=== PATIENT | male | born 1990 | race Caucasian/White ===

== ENCOUNTER 2017-08-12 16:11 | Inpatient (IN) ==
--- NOTE | 2017-08-12 18:57 | Emergency Department Note ---
Disposition Clinical Impression: Abscess of skin or subcutaneous tissue Qualifiers: Site of cutaneous abscess: extremity Site of cutaneous abscess of extremity: upper extremity Laterality: right Qualified Code(s): L02.413 - Cutaneous abscess of right upper limb Cellulitis Qualifiers: Site of cellulitis: extremity Site of cellulitis of extremity: upper extremity Disposition: Admitted As Inpatient Condition: Fair Forms: ED Satisfaction Letter Time of Disposition: 21:42 Skin/Abscess/FB HPI Chief complaint: ED Skin/Abscess/Foreign Body Stated complaint: abcess on right arm Time Seen by Provider: 08/12/17 18:46 Source: patient Limitations: no limitations Nursing Notes Reviewed: Yes Vital Signs Reviewed: Yes HPI Narrative: 27-year-old who comes in complaining of an abscess to his right arm. Patient saw his family doctor today and was referred for surgical intervention. Patient has been on clindamycin for the last several days and symptoms got worse. Pt Subjective Complaint: abscess/boil Onset (ago): day(s) Location: RUE Severity: moderate Quality: burning, aching Consistency: constant Improves with: none Worsens with: palpation Context: recent antibiotic Treatments prior to arrival: none Allergies Allergy/AdvReac Type Severity Reaction Status Date / Time No Known Allergies Allergy Verified 07/12/17 10:25 All systems ED: reviewed and negative except as stated. Constitutional: Denies: fever, chills, weakness, weight change Eyes: Denies: eye pain, eye discharge, vision change ENT ED: Denies: ear pain, throat pain, dental pain, hearing loss, epistaxis, congestion, dysphagia Cardiovascular: Denies: chest pain, palpitations, dyspnea on exertion, edema, syncope Respiratory: Denies: cough, dyspnea, wheezes, hemoptysis, stridor Gastrointestinal: Denies: abdominal pain, nausea, vomiting, diarrhea, constipation, hematemesis, melena, hematochezia Genitourinary: Denies: urgency, dysuria, frequency, hematuria Musculoskeletal: Denies: back pain, neck pain, arthralgia, myalgia Integumentary: Reports: other (Abscess right forearm). Denies: rash, abrasion, lesions Neurological: Denies: headache, weakness, numbness, paresthesias, confusion, abnormal gait, vertigo Psychiatric: Denies: anxiety, depression, suicidal thoughts, homicidal thoughts , auditory hallucinations, visual hallucinations Endocrine: Denies: fatigue Hematological/Lymphatic: Denies: easy bleeding, easy bruising Allergic/Immunologic: Denies: facial swelling, urticaria Past Medical History - Past Medical History Medical history: Reports: other Surgical history: Reports: non-contributory Psychiatric history: Reports: no psych history - Social History Smoking Status: Current every day smoker Smokeless Tobacco Status: No Alcohol use: Reports: none Drug use: Reports: IV Drug Use Physical Exam - General Limitations: no limitations General appearance: alert, in no apparent distress - Head Head exam: atraumatic, normocephalic, normal inspection - Eye Eye exam: Present: normal appearance, PERRL, EOMI - ENT ENT exam: normal exam, normal oropharynx, mucous membranes moist - Neck Neck exam: Present: normal inspection, full ROM, trachea midline - Chest Chest inspection: Present: normal inspection, symmetric chest wall rise - Respiratory Respiratory exam: Present: normal lung sounds bilaterally - Cardiovascular Cardiovascular exam: Present: regular rate, normal rhythm, normal heart sounds - Abdominal Exam Abdominal exam: Present: soft, Non-Tender. Absent: tenderness, distention, guarding, rebound, rigidity - Expanded Upper Extremity Exam Forearm/Wrist exam: Present: tenderness, erythema - Expanded Lower Extremity Exam Neurovascular/Tendon exam: Absent: motor deficit, sensory deficit, tendon deficit Gait: observed and normal - Back Exam Back exam: Present: normal inspection, full ROM. Absent: tenderness - Neurological Exam Neurological exam: Present: alert, oriented X3 - Psychiatric Psychiatric exam: Present: normal affect, normal mood - Skin Skin exam: Present: warm, dry, intact, normal color Course - Reevaluation(s) Reevaluation #1: 27-year-old who admits to IV heroin use who comes in with a large abscess on his right forearm. Patient had been on clindamycin without improvement. The abscess was incised with return large amount purulent material. In light of the failure of by mouth antibiotics were admit for IV antibiotics. Time: 21:40 - Consultations Consultation #1: Discussed with Dr. Sánchez, admit Time: 21:42 Vital Signs Temperature 97.7 F 08/12/17 16:36 Pulse Rate 90 08/12/17 16:36 Respiratory Rate 18 08/12/17 16:36 Blood Pressure 137/97 08/12/17 16:36 O2 Sat by Pulse Oximetry 95 08/12/17 16:36 Temperature 97.7 F 08/12/17 16:36 Pulse Rate 90 08/12/17 16:36 Respiratory Rate 18 08/12/17 16:36 Blood Pressure 137/97 08/12/17 16:36 O2 Sat by Pulse Oximetry 95 08/12/17 16:36 Oxygen Delivery Oxygen Delivery Room Air Procedures - Abscess I/D Consent obtained: verbal consent Site: upper extremity Side (if applicable): right Local Anesthetic: lidocaine 1% Amount of Anesthesia Used (mL): 6 Technique: incised with #11 blade Amount of fluid: 10 Irrigation: Yes Packing used?: plain Complications: pain Skin/Abscess/Foreign Body - Lab Data Lab results reviewed: Yes I reviewed the patient's lab results. Result diagrams: 08/12/17 19:01 08/12/17 19:01 Lab Results 08/12/17 08/12/17 08/12/17 Range/Units 19:01 19:01 19:01 WBC 13.8 H (4.3-11.1) K/mcL RBC 4.98 (4.19-5.50) M/mcL Hgb 14.4 (12.9-16.9) g/dL Hct 42.5 (37.5-50.1) % MCV 85.3 (83.0-100.0) fL MCH 28.9 (28.0-33.3) pg MCHC 33.9 (31.6-35.5) g/dL RDW 12.5 (11.5-14.5) % Plt Count 340 (140-400) K/mcL MPV 10.3 (9.4-12.4) fL Immature Gran % 0.4 (0-4) % Seg Neutrophils % 75.5 % Lymphocytes % 17.5 % Monocytes % 6.0 % Eosinophils % 0.2 % Basophils % 0.4 % Neutrophils # 10.4 H (1.6-8.9) K/mcL Lymphocytes # 2.4 (0.6-4.6) K/mcL Monocytes # 0.8 (0.0-1.3) K/mcL Eosinophils # 0.0 (0.0-0.6) K/mcL Basophils # 0.1 (0.0-0.2) K/mcL Immature Plt Fraction 4.4 (1.1-6.1) % Sodium 139 (136-145) mEq/L Potassium 4.1 (3.5-4.5) mEq/L Chloride 100 (98-109) mEq/L Carbon Dioxide 27 (19-29) mEq/L BUN 10 (8-26) mg/dL Creatinine 0.85 (0.72-1.25) mg/dL Est GFR ( Amer) > 60 (> 60) Est GFR (Non-Af Amer) > 60 (> 60) BUN/Creatinine Ratio 12 (6-26) Glucose 125 H (70-99) mg/dL Calculated Osmolality 289 (280-300) Lactic Acid 1.9 (0.5-2.2) mmol/L Calcium 10.0 (8.6-10.8) mg/dL - Radiology Data Radiology results reviewed: Yes I reviewed the patient's radiology results. Upper Extremity CT 08/12/17 18:54 IMPRESSION: 1. Complex rim enhancing fluid collection measuring 1.7 x 3.0 x 5.2 cm along the ulnar aspect of the proximal forearm compatible with subcutaneous abscess. There is surrounding subcutaneous edema and skin thickening compatible with cellulitis. No evidence for osteomyelitis. D/ / Alfredo Hauser MD / Alfredo Hauser MD Interpreting Provider: Alfredo Hauser MD
[2017-08-12 19:11] LABS: Basophils # 0.1 K/mcL (0.0-0.2); Basophils % 0.4 %; Eosinophils % 0.2 %; Hematocrit 42.5 % (37.5-50.1); Hemoglobin 14.4 g/dL (12.9-16.9); Immature Granulocytes % 0.4 % (0-4); Immature Platelets 4.4 % (1.1-6.1); Lymphocytes # 2.4 K/mcL (0.6-4.6); Lymphocytes % 17.5 %; Mean Corpuscular HGB Conc 33.9 g/dL (31.6-35.5); Mean Corpuscular Hemoglobin 28.9 pg (28.0-33.3); Mean Corpuscular Volume 85.3 fL (83.0-100.0); Mean Platelet Volume 10.3 fL (9.4-12.4); Monocytes # 0.8 K/mcL (0.0-1.3); Neutrophils # 10.4 K/mcL (1.6-8.9); Platelet Count 340 K/mcL (140-400); Red Blood Count 4.98 M/mcL (4.19-5.50); Red Cell Distribution Width 12.5 % (11.5-14.5); Segmented Neutrophils % 75.5 %
[2017-08-12 19:22] LABS: BUN/Creatinine Ratio 12 (6-26); Blood Urea Nitrogen 10 mg/dL (8-26); Carbon Dioxide 27 mEq/L (19-29); Chloride 100 mEq/L (98-109); Potassium 4.1 mEq/L (3.5-4.5); Sodium 139 mEq/L (136-145); eGFR For African Americans > 60 (> 60)
[2017-08-12 19:23] LABS: Glucose 125 mg/dL (70-99); Osmolality,Calculated 289 (280-300); eGFR For Non-African Americans > 60 (> 60)
[2017-08-12] MEDS ORDERED: [UNRECOGNIZED DRUG - OTHER] IR ONE (20:21)
[2017-08-12] MEDS ORDERED: Lidocaine -MPF 1% 2 ML VIAL INFILT ONE (21:00)
[2017-08-12] MEDS ORDERED: Piperacillin/Tazobactam 3.375 GM in D5% in Water (Mini-Bag+) 100 ML IVPB ONE (21:38)
[2017-08-12] MEDS ORDERED: Vancomycin 1,000 MG in D5% in Water 250 ML IVPB ONE (21:38)
[2017-08-13] MEDS ORDERED: *HR* Morphine 2 MG/ML SYRINGE IVP PRN (01:23)
--- NOTE | 2017-08-13 01:42 | Internal Med History&Physical ---
Date of Encounter: 08/13/17 Time of Encounter: 01:39 Assessment and Plan (1) Abscess of skin or subcutaneous tissue Current visit: Yes Status: Acute Abscess of the right forearm. There is no affection of the elbow joint. Good range of motion. Patient Had failed outpatient antibiotic therapy with clindamycin. Patient had incision and drainage of abscess in the emergency room. He will be started on vancomycin and Zosyn. Hydrate. Get wound an d blood culture. Surgery to follow up Qualifiers: Site of cutaneous abscess: extremity Site of cutaneous abscess of extremity : upper extremity Laterality: right Qualified Code(s): L02.413 - Cutaneous abscess of right upper limb Internal Medicine - H&P: HPI Chief complaint: right arm abscess History of present illness: Mr. Malik is a 27 year old male who is an intravenous drug abuser, history of hepatitis C virus infection, presents to the emergency room today with swelling in the right upper extremity and pain. This has started a week ago. It seems his PCP approximately 4 to 5 days ago and gave him a course of clindamycin. It is not noticed any improvement with the oral antibiotic and is obsessed about receiving intravenous antibiotics. Patient had chills. Appetite has declined. He thinks is related to injection site. He denies any chest pain and shortness of breath. Past Med Surg Social Fam HX - Past Medical History Medical history: hepatitis Psychiatric history: no psych history - Past Surgical History Surgical History: non-contributory - Social History Smoking Status: Current every day smoker Packs per day: 1 Smokeless Tobacco Status: No Alcohol use: none Drug use: IV Drug Use - Family History Grandfather Living Status: Hx Family Cardiac Disorders: Yes Hx Family Endocrine Disorder: Yes Internal Medicine - H&P: Meds Buprenorphine HCl/Naloxone HCl [Suboxone 8 mg-2 mg Sl Film] 1 each SL BID [History] Clindamycin HCl [Cleocin HCl] 300 mg PO TID 08/12/17 [History] Ranitidine HCl [Zantac] 300 mg PO DAILY 08/12/17 [History] Sucralfate [Carafate] 1 gm PO QID 08/12/17 [History] 3 Allergy/AdvReac Type Severity Reaction Status Date / Time No Known Allergies Allergy Verified 07/12/17 10:25 All Systems PM: A 10-system review of systems was performed and is negative for pertinent findings except as documented above in the HPI. Review of systems: 10 point review of systems is negative except for HPI - Constitutional Vitals: Temp Pulse Resp BP Pulse Ox 97.9 F 89 16 128/75 96 08/12/17 23:06 08/12/17 23:06 08/12/17 23:06 08/12/17 23:06 08/12/17 23:06 Exam: Gen.: patient is alert oriented times 3 not in distress. Cardiac: normal S1 S2 no additional sounds or murmurs chest: fair air entry. no active wheezing. No crackles or bronchial breathing. abdomen: soft nontender nondistended normal bowel sounds neuro: no focal deficit Arm: right arm covered with dressing s/p I and D. Internal Med - H&P Results - Labs CBC & Chem 7: 08/12/17 19:01 08/12/17 19:01
[2017-08-13] MEDS ORDERED: Vancomycin 1,250 MG in D5% in Water 250 ML IVPB SCH (02:00)
[2017-08-13] MEDS: Piperacillin/Tazobactam 3.375 GM in D5% in Water (Mini-Bag+) 100 ML IVPB SCH ×3 (02:51→20:16)
[2017-08-13] MEDS: 0.9 % Sodium Chloride 1,000 ML IVC SCH ×2 (02:51→20:16)
[2017-08-13 05:52] LABS: Basophils # 0.1 K/mcL (0.0-0.2); Basophils % 0.5 %; Eosinophils # 0.1 K/mcL (0.0-0.6); Eosinophils % 0.7 %; Hematocrit 34.5 % (37.5-50.1); Immature Granulocytes % 0.4 % (0-4); Lymphocytes # 2.7 K/mcL (0.6-4.6); Mean Corpuscular HGB Conc 34.2 g/dL (31.6-35.5); Mean Corpuscular Hemoglobin 28.6 pg (28.0-33.3); Mean Corpuscular Volume 83.7 fL (83.0-100.0); Mean Platelet Volume 11.2 fL (9.4-12.4); Monocytes # 1.2 K/mcL (0.0-1.3); Monocytes % 9.6 %; Platelet Count 298 K/mcL (140-400); Red Blood Count 4.12 M/mcL (4.19-5.50); Red Cell Distribution Width 12.5 % (11.5-14.5); Segmented Neutrophils % 66.8 %
[2017-08-13 05:56] LABS: Hemoglobin 11.8 g/dL (12.9-16.9); Neutrophils # 8.2 K/mcL (1.6-8.9)
[2017-08-13 06:28] LABS: BUN/Creatinine Ratio 10 (6-26); Blood Urea Nitrogen 8 mg/dL (8-26); Calcium 9.5 mg/dL (8.6-10.8); Carbon Dioxide 26 mEq/L (19-29); Chloride 100 mEq/L (98-109); Glucose 102 mg/dL (70-99); Magnesium 2.1 mg/dL (1.6-2.6); Osmolality,Calculated 279 (280-300); Potassium 3.8 mEq/L (3.5-4.5); Sodium 135 mEq/L (136-145); eGFR For African Americans > 60 (> 60); eGFR For Non-African Americans > 60 (> 60)
[2017-08-13] MEDS ORDERED: Lidocaine -MPF 2% 10 ML AMPUL INFILT STA (08:55)
[2017-08-13 08:57] LABS: C-Reactive Protein 30 mg/L (Less than 5)
[2017-08-13] MEDS: Famotidine 20 MG TABLET PO SCH ×2 (09:14→20:15)
[2017-08-13] MEDS: Vancomycin 1,000 MG in D5% in Water 250 ML IVPB SCH ×2 (09:14→23:04)
--- NOTE | 2017-08-13 09:14 | General Surgery Consult Note ---
Date of Encounter: 08/13/17 Time of Encounter: 09:10 Assessment and Plan (1) Abscess of skin or subcutaneous tissue Current Visit: Yes Status: Acute The right forearm site is free from surrounding erythema. There are no notable areas of fluctuations remaining. There is no indication for surgical intervention or repeat I & D at this time. I reviewed the above findings with Dr. Zhao. Plan: -Recommend continue packing daily with 1/4 inch Iodoform gauze for 2 days. - On 08/15/2017, transition to 1/4 inch plain gauze daily. Cover with a dry dressing and tape to secure. -Continue IV antibiotics and transition to PO antibiotics when appropriate per the primary medicine team. -Surgery will sign off at this time. Thank you for allowing us to participate in Mr. Malik's care. This A/P was discussed and agreed up by the patient and IMPROVEMENT NURSE (Melissa). Qualifiers: Site of cutaneous abscess: extremity Site of cutaneous abscess of extremity : upper extremity Laterality: right Qualified Code(s): L02.413 - Cutaneous abscess of right upper limb (2) IV drug abuse Current Visit: Yes Status: Acute History of Present Illness Consult date: 08/13/17 (Dr. Bijan Zhao) Reason for consult: wound care (Right forearm abscess) Requesting physician: Buzz Sánchez History of present illness: Cheko is a 27 year old male with a history of polysubstance abuse including IV drug use and cigarette smoking addiction. He presented to [facility] on 08/12/2017 for c/o right forearm wound and failed outpatient Keflex treatment. He reports a unknown history (estimates 1 week) of right forearm "red bump" that worsened. His hospital course has included lab work which is consistent with leukocytosis without bandemia, blood cultures x2 which are pending, and A CT of his right extremity was obtained which showed a Complex rim enhancing fluid collection measuring 1.7 x 3.0 x 5.2 cm along, the ulnar aspect of the proximal forearm compatible with subcutaneous, abscess. There is surrounding subcutaneous edema and skin thickening, compatible with cellulitis. No evidence for osteomyelitis. The abscess was then I&D'd in the ER with a reported large amount of purulent material return. He states that since his I&D he is relatively pain free. He endorses fevers/chills at home, but did not check his temperature. He denies 8, dizziness, chest pain, shortness of breath, abdominal pain, nausea, vomiting, diarrhea, weakness, or fatigue. He does into words that last heroin injection was approximately 1 day ago and that he does inject daily. He denies any other illicit drug use. Past Med Surg Social Fam HX - Past Medical History Source: patient, old records reviewed Medical history: hepatitis, other (IVDA) Psychiatric history: other (Polysubstance abuse ) - Past Surgical History Surgical History: non-contributory - Social History Smoking Status: Current every day smoker Packs per day: 1 Smokeless Tobacco Status: No Alcohol use: none Drug use: IV Drug Use Occupational status: unemployed Current living situation: Home - Independent Activity Level: Independent ambulation Recent Out of Country Travel Within the Last 8 Weeks: No Exposure or Possible Exposure to Illness During Travel: No - Family History Grandfather Living Status: Hx Family Cardiac Disorders: Yes Hx Family Endocrine Disorder: Yes Medications and Allergies Buprenorphine HCl/Naloxone HCl [Suboxone 8 mg-2 mg Sl Film] 1 each SL BID [History] Clindamycin HCl [Cleocin HCl] 300 mg PO TID 08/12/17 [History] Ranitidine HCl [Zantac] 300 mg PO DAILY 08/12/17 [History] Sucralfate [Carafate] 1 gm PO QID 08/12/17 [History] 3 Allergy/AdvReac Type Severity Reaction Status Date / Time No Known Allergies Allergy Verified 07/12/17 10:25 Review of Systems All systems PM: A 10-system review of systems was performed and is negative for pertinent findings except as documented above in the HPI. General Surgery Exam Initial Vital Signs Temp Pulse Resp BP Pulse Ox 97.7 F 90 18 137/97 95 08/12/17 16:36 08/12/17 16:36 08/12/17 16:36 08/12/17 16:36 08/12/17 16:36 - General physical appearance well developed, well nourished, no distress, moderate pain - Eyes normal ocular movement - ENT normal mucosa, atraumatic, normocephalic - Neck no masses, no bruits, trachea midline, no lymphadectomy, no venous distension - Respiratory normal expansion, normal respiratory effort, clear to percussion, clear to auscultation - Cardiovascular Cardiovascular exam: Present: RRR, 15, 16 - Abdomen Abdomen general surgery: Present: bowel sounds present, soft, non tender - Integumentary Integumentary general surgery: Present: warm and dry, no abnormal pigmentation, other (Right forearm IND site approximately 2 inches in length linear along the posterior forearm. No signs of surrounding cellulitis noted.) - Neurologic Present: CN 2-12 grossly intact, normal coordination, normal sensation - Musculoskeletal Present: normal gait, normal posture - Psychiatric Psychiatric general surgery: Present: A&Ox3, appropriate, oriented to person, oriented to place, oriented to time, speech is normal, memory intact Exam Initial Vital Signs Temp Pulse Resp BP Pulse Ox 97.7 F 90 18 137/97 95 08/12/17 16:36 08/12/17 16:36 08/12/17 16:36 08/12/17 16:36 08/12/17 16:36 Results - Labs 08/13/17 05:20 08/13/17 05:53 Abnormal lab results WBC 12.2 K/mcL (4.3-11.1) H 08/13/17 05:20 RBC 4.12 M/mcL (4.19-5.50) L 08/13/17 05:20 Hgb 11.8 g/dL (12.9-16.9) L D 08/13/17 05:20 Hct 34.5 % (37.5-50.1) L 08/13/17 05:20 ESR 47 mm/hr (0-10) H 08/13/17 05:20 Sodium 135 mEq/L (136-145) L 08/13/17 05:53 Glucose 102 mg/dL (70-99) H 08/13/17 05:53 Calculated Osmolality 279 (280-300) L 08/13/17 05:53 Diabetes panel 08/13/17 Range/Units 05:53 Sodium 135 L (136-145) mEq/L Potassium 3.8 (3.5-4.5) mEq/L Chloride 100 (98-109) mEq/L Carbon Dioxide 26 (19-29) mEq/L BUN 8 (8-26) mg/dL Creatinine 0.78 (0.72-1.25) mg/dL Glucose 102 H (70-99) mg/dL Calcium 9.5 (8.6-10.8) mg/dL Calcium panel 08/13/17 Range/Units 05:53 Calcium 9.5 (8.6-10.8) mg/dL Pituitary panel 08/13/17 Range/Units 05:53 Sodium 135 L (136-145) mEq/L Potassium 3.8 (3.5-4.5) mEq/L Chloride 100 (98-109) mEq/L Carbon Dioxide 26 (19-29) mEq/L BUN 8 (8-26) mg/dL Creatinine 0.78 (0.72-1.25) mg/dL Glucose 102 H (70-99) mg/dL Calcium 9.5 (8.6-10.8) mg/dL Adrenal panel 08/13/17 Range/Units 05:53 Sodium 135 L (136-145) mEq/L Potassium 3.8 (3.5-4.5) mEq/L Chloride 100 (98-109) mEq/L Carbon Dioxide 26 (19-29) mEq/L BUN 8 (8-26) mg/dL Creatinine 0.78 (0.72-1.25) mg/dL Glucose 102 H (70-99) mg/dL Calcium 9.5 (8.6-10.8) mg/dL All other labs normal. - Imaging Additional studies: Upper Extremity CT 08/12/17 18:54 IMPRESSION: 1. Complex rim enhancing fluid collection measuring 1.7 x 3.0 x 5.2 cm along the ulnar aspect of the proximal forearm compatible with subcutaneous abscess. There is surrounding subcutaneous edema and skin thickening compatible with cellulitis. No evidence for osteomyelitis. D/ / Alfredo Hauser MD / Alfredo Hauser MD Interpreting Provider: Alfredo Hauser MD Consult Discharge Plan - Plan Referrals: Boni Oviedo DO [Primary Care Provider] -
[2017-08-13] MEDS ORDERED: Lidocaine Jelly 11 ml Syringe TP ONE (09:41)
[2017-08-13] MEDS: *HR* Buprenorphine HCl 2 MG SUBLINGUAL TABLET SL SCH ×2 (11:06→20:15)
--- NOTE | 2017-08-13 17:26 | Event Note ---
Date of Encounter: 08/13/17 Time of Encounter: 17:17 Cheko Ash is a 27 y/o male with PMH hepatitis C and IV drug abuse who presented to [facility] on 08/12/2017 with complaints of swelling and pain to right arm. He was found to have an abscess, status post I&D in the ER. He was admitted for IV ATB 1. Right forearm abscess: presented with right arm swelling and pain. Right arm CT with evidence of abscess and celluilits, no osteo. Failed outpatient Clindamycin. S/p I&D in ER. Cont IV vanco and Zosyn. Cx pending 2. IV heroin use: per hx. Not currently using. Cont home suboxone ([facility]RS verified 08/13 and he does have active rx). 3. Hepatitis C: per hx. LFTs pending 4. Tobacco use: current smoker; cessation advised but not likely. Refusing nicotine patch 5. DVT prophylaxis: heparin
[2017-08-13] MEDS: Sucralfate 1 GM TABLET PO SCH (20:15)
[2017-08-13] MEDS: *HR* Heparin 5,000 UNIT/ML VIAL SQ SCH (22:59)
[2017-08-14] MEDS: Piperacillin/Tazobactam 3.375 GM in D5% in Water (Mini-Bag+) 100 ML IVPB SCH ×2 (03:48→14:48)
[2017-08-14] MEDS: *HR* Heparin 5,000 UNIT/ML VIAL SQ SCH ×2 (03:58→14:40)
[2017-08-14 04:06] LABS: Hematocrit 38.3 % (37.5-50.1); Mean Corpuscular HGB Conc 33.9 g/dL (31.6-35.5); Mean Corpuscular Hemoglobin 28.6 pg (28.0-33.3); Mean Corpuscular Volume 84.2 fL (83.0-100.0); Mean Platelet Volume 10.6 fL (9.4-12.4); Platelet Count 311 K/mcL (140-400); Red Blood Count 4.55 M/mcL (4.19-5.50); Red Cell Distribution Width 12.3 % (11.5-14.5)
[2017-08-14 04:19] LABS: Alanine Aminotransferase 20 Units/L (0-55); Albumin 3.5 g/dL (3.5-5.0); Albumin/Globulin Ratio 0.9 (1.1-2.2); Alkaline Phosphatase 126 Units/L (38-126); Aspartate Amino Transferase 12 Units/L (5-34); BUN/Creatinine Ratio 9 (6-26); Bilirubin,Total 0.3 mg/dL (0.2-1.2); Blood Urea Nitrogen 7 mg/dL (8-26); Calcium 9.5 mg/dL (8.6-10.8); Carbon Dioxide 25 mEq/L (19-29); Chloride 104 mEq/L (98-109); Globulin 3.8 g/dL (2.4-3.5); Glucose 116 mg/dL (70-99); Osmolality,Calculated 285 (280-300); Potassium 3.8 mEq/L (3.5-4.5); Sodium 138 mEq/L (136-145); Total Protein 7.3 g/dL (6.0-8.3); eGFR For African Americans > 60 (> 60); eGFR For Non-African Americans > 60 (> 60)
[2017-08-14] MEDS: Famotidine 20 MG TABLET PO SCH (08:03)
[2017-08-14] MEDS: *HR* Buprenorphine HCl 2 MG SUBLINGUAL TABLET SL SCH (08:03)
[2017-08-14] MEDS: Sucralfate 1 GM TABLET PO SCH ×2 (08:03→14:39)
[2017-08-14] MEDS ORDERED: NON-FORMULARY MEDICATION 1 EACH EACH (Ranitidine Hcl [Zantac] 300 MG) PO SCH (09:00)
--- NOTE | 2017-08-14 12:22 | Discharge Summary ---
Date of Encounter: 08/14/17 Time of Encounter: 12:16 - Discharge Diagnosis (1) Abscess of skin or subcutaneous tissue Priority: Primary Status: Acute Comments: hCeko Ash is a 27 y/o male with PMH hepatitis C and IV drug abuse who presented to [facility] on 08/12/2017 with complaints of swelling and pain to right arm. He was found to have an abscess, status post I&D in the ER. He was admitted for IV ATB. His symptoms significantly improved with IV ATB and he was discharged home on oral antibiotics with outpatient follow-up. 1. Right forearm abscess: presented with right arm swelling and pain. Right arm CT with evidence of abscess and celluilits, no evidence of osteomyelitis. Secondary to IV drug use. Failed outpatient Clindamycin. S/p I&D in ER. Received 2 doses of IV vanco and Zosyn. No wound cultures obtained in ER. ATB de-escalated to Bactrim at discharge (to complete total course of 10 days of Bactrim). Patient sent home with wound care supplies. Plan for follow up with wound care in [place]. 2. IV heroin use: per hx. Not currently using. Cont home suboxone (OARRS verified 08/13 and he does have active rx). Can follow up outpatient as previously planned 3. Hepatitis C: per hx. LFTs normal. Recommend follow-up with PCP. 4. Tobacco use: current smoker; cessation advised but not likely. Refused nicotine replacement. Qualifiers: Site of cutaneous abscess: extremity Site of cutaneous abscess of extremity : upper extremity Laterality: right Qualified Code(s): L02.413 - Cutaneous abscess of right upper limb (2) Cellulitis Priority: Primary Status: Acute Qualifiers: Site of cellulitis: extremity Site of cellulitis of extremity: upper extremity Qualified Code(s): L03.113 - Cellulitis of right upper limb (3) IV drug abuse Priority: Primary Status: Acute - Discharge Medications Prescriptions: Sulfamethoxazole/Trimeth DS [Bactrim DS] 1 each PO BID #20 tablet Home Medications: Buprenorphine HCl/Naloxone HCl [Suboxone 8 mg-2 mg Sl Film] 1 each SL BID [History] Ranitidine HCl [Zantac] 300 mg PO DAILY 08/12/17 [History] Sucralfate [Carafate] 1 gm PO QID 08/12/17 [History] Sulfamethoxazole/Trimeth DS [Bactrim DS] 1 each PO BID #20 tablet 08/14/17 [Rx] Allergies/Adverse Reactions: 3 Allergy/AdvReac Type Severity Reaction Status Date / Time No Known Allergies Allergy Verified 07/12/17 10:25 Date of admission: 08/13/17 01:23 Primary care physician: Boni Oviedo DO Consults: 08/13/17 01:25 Consult to Surgery [CONS] Routine Consulting Provider: [facility] Reason for Consult: IVDA, arm abscess Call Completed: No Discharging clinician: Melissa Sultana Anticipated date of discharge: 08/14/17 - Patient Status Disposition: Home, Self-Care Condition: Good Functional capacity at discharge: independent ambulation Overall status at discharge: patient is back to baseline - Discharge Instructions Follow Up With: Boni Oviedo DO [Primary Care Provider] - 08/20/17 11:30 am - Diet and Activity Activity: resume usual activities as tolerated Diet: advance to your usual diet Interval History: Seen and examined at bedside. Dressing to right arm changed by myself. Patient reports wound looks significantly improved. Patient educated personally by myself on wound care dressing changes. Strongly encouraged adherence to ATB, IV drug abuse cessation and follow-up with wound care. Patient has no complaints of verbalizes understanding. Hospital course: Mr. Malik is a 27 year old male - Time Spent with Patient Total time spent providing and/or coordinating discharge services: Greater than 30 minutes (55 minutes spent on discharge) - Constitutional Vitals: Temp Pulse Resp BP Pulse Ox 98.5 F 86 14 132/81 98 08/14/17 11:24 08/14/17 11:24 08/14/17 11:24 08/14/17 11:24 08/14/17 11:24 General appearance: Present: A&O X 3, no acute distress - Head Head exam: Present: atraumatic, normocephalic - Eye Eye exam: Present: PERRL, conjuntiva pink, sclera anicteric Pupils: Present: PERRL - Neck Neck exam general surgery: Present: supple, trachea midline. Absent: lymphadenopathy - Respiratory Respiratory exam: Present: CTAB. Absent: accessory muscle use, rales, rhonchi, wheezes - Cardiovascular Cardiovascular exam: Present: RRR, +S1, +S2. Absent: diastolic murmur, gallop, rubs, systolic murmur - GI/Abdominal GI/Abdominal exam: Present: normal bowel sounds, soft, no peritoneal signs. Absent: distended, tenderness - Extremities Exam Extremities exam: Present: warm, radial pulses palpable and symmetrical. Absent : calf tenderness, cyanotic, pedal edema - Neurological Exam Neurological exam: Present: CN II-XII intact, oriented X3, no focal deficits. Absent: pronater drift, facial droop, speech deficit - Skin Skin exam: Present: dry, intact - Expanded Skin Exam Type of lesion: Present: laceration (Right forearm) Full body front and back image: 1 - Right arm forearm S/PE I& site. Wound bed with HEENT granulation tissue and dried blood to proximal and distal ends. No surrounding erythema no purulence noted
[2017-08-14] MEDS ORDERED: Sulfamethoxazole/Trimeth DS 1 EACH TABLET PO ONE (12:23)
[2017-08-14 14:25] VITALS: BP 136/81
[2017-08-14] MEDS ORDERED: Aminoglycoside Consult 1 EACH MC ONE (14:56)
== END 2017-08-14 14:57 | disposition home or self-care (01) | DRG 383 ==
LOC: EMEROO 16:11 → 3BNU 16:11
PROVIDERS: ADMIT Internal Medicine; ATTEND Registered Nurse